=== PATIENT | male | born 1985 | race Caucasian/White ===

== ENCOUNTER 2018-06-01 01:19 | Emergency (ER) | payer OTHER ==
[2018-06-01] MEDS ORDERED: Ondansetron PF 4 MG/2 ML Vial ONE (01:31)
[2018-06-01 01:38] LABS: #Basophils 0.1 thou/uL (0.0-0.2); #Eosinphils 0.3 thou/uL (0.0-0.7); #Lymphocytes 4.7 thou/uL (1.20-3.40); #Monocytes 0.8 thou/uL (0.11-0.59); #Neutrophils 3.9 thou/uL (1.40-6.50); %Basophils 1.1 % (0.0-1.0); %Eosinophils 2.7 % (0.0-10.0); %Lymphocytes 47.9 % (21.0-51.0); %Monocytes 8.5 % (0.0-10.0); %Neutrophils 39.8 % (42.0-75.0); Hemoglobin 14.8 g/dL (14.0-18.0); Mean Corpuscular HGB CONC 32.9 g/dL (32.0-36.0); Mean Corpuscular Hemoglobin 29.6 pg (27.0-31.0); Mean Corpuscular Volume 90.2 fL (78.0-98.0); Mean Platelet Volume 7.6 fL (7.4-10.4); Platelet Count 312 thou/uL (130-400); RBC Distribution Width 11.3 % (11.5-14.5); White Blood Cell (WBC) Count 9.8 thou/uL (4.8-10.8)
[2018-06-01 01:57] LABS: ALT (SGPT) 29 U/L (8-55); AST (SGOT) 20 U/L (5-34); Albumin 4.3 g/dL (3.5-5.0); Alkaline Phosphatase 81 U/L (40-150); Anion Gap 14 mmol/L (10-20); BUN (Urea Nitrogen) 15 mg/dL (8.9-20.6); Bilirubin, Total 0.7 mg/dL (0.2-1.2); Calc. Creatinine Clearance 0 mL/min (70-130); Calcium 9.5 mg/dL (7.8-10.44); Carbon Dioxide 25 mmol/L (22-29); Chloride 106 mmol/L (98-107); Estimated GFR-MDRD 85; Globulin 2.7 g/dL (2.4-3.5); Glucose 99 mg/dL (70-105); Potassium 3.6 mmol/L (3.5-5.1); Sodium 141 mmol/L (136-145)
--- NOTE | 2018-06-01 07:49 | RAD ---
AP VIEW CHEST: HISTORY: Syncope. FINDINGS: AP view chest was obtained on 06/01/2018. AP view chest demonstrates mild cardiomegaly. No evidence of effusions, pneumonia, or pneumothorax i s seen. IMPRESSION: Unremarkable AP view chest. POS: [facility]
--- NOTE | 2018-06-01 08:46 | CT ---
PRELIMINARY REPORT/[facility]/EMERGENTY AFTER-HOURS PROCEDURE CT Cervical Spine Without Contrast EXAM DATE/TIME: 06/01/2018 1:40 AM CLINICAL HISTORY: 33 years old, male; Injury or trauma; Fall; Work related; Initial encounter; Blunt trauma; Injury pernell e: 06/01/18; Patient HX: Syncopized in the ambulance bay. 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 [place] nauseous, light headed and looked pale before the syncope episode. PT fell forward hitting face/forehead wo contusion or laceration TECHNIQUE: Axial computed tomography images of the cervical spine without intravenous contrast. COMPARISON: No relevant prior studies available. FINDINGS: Vertebrae: No acute fracture. Normal alignment. Discs/Spinal canal/Neural foramina: No spinal stenosis. No neural foraminal narrowing. Soft tissues: Unremarkable. Lungs: Lung apices are normal. IMPRESSION: No acute findings. Thank you for allowing us to participate in the care of your patient. Dictated and Authenticated by: Sami Dove MD 06/01/2018 1:58 AM Central Time ([place] & [place]) FINAL REPORT CT CERVICAL SPINE WITH CORONAL AND SAGITTAL REFORMATIONS: I agree with the preliminary report given by Dr. Sami Dove of [facility]. POS: OFF
--- NOTE | 2018-06-01 08:48 | CT ---
PRELIMINARY REPORT/[facility]/EMERGENTY AFTER-HOURS PROCEDURE CT Head Without Contrast EXAM DATE/TIME: 06/01/2018 1:40 AM CLINICAL HISTORY: 33 years old, male; Injury or trauma; Fall; Work related; Initial encounter; Blunt trauma (contusions or hematomas); Injury date: 06/01/18; Patient HX: Syncopized in the ambulance bay. 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 [place] nauseous, light headed and looked pale before the syncope episode. PT fell forward hitting face/forehead wo contusion or laceration TECHNIQUE: Axial computed tomography images of the head/brain without contrast. COMPARISON: No relevant prior studies available. FINDINGS: Brain: Normal. No hemorrhage. No significant white matter disease. No edema. Ventricles: Normal. No ventriculomegaly. Bones/joints: Normal. No acute fracture. Sinuses: Normal as visualized. No acute sinusitis. Mastoid air cells: Normal as visualized. No mastoid effusion. Soft tissues: Normal. IMPRESSION: No acute intracranial abnormality. Thank you for allowing us to participate in the care of your patient. Dictated and Authenticated by: Sami Dove MD 06/01/2018 2:00 AM Central Time ([place] & [place]) FINAL REPORT CT BRAIN WITHOUT CONTRAST: I agree with the preliminary report given by Dr. Sami Dvoe of [facility]. POS: OFF
== END 2018-06-01 02:44 | disposition home or self-care (01) ==
LOC: ERS 01:19
DX: R55 Syncope and collapse (principal)
CPT/HCPCS: 70450; 71045; 72125; 80053; 83880; 84484; 85025; 85379; 93005; 96361; 96374; J2405

== ENCOUNTER 2023-02-18 17:00 | Outpatient (CLI) | payer BC | END 2023-02-18 17:01 | disposition home or self-care (01) | LOC: SLEEPLAB 17:00 | PROVIDERS: ATTEND Family Medicine | DX: G47.33 Obstructive sleep apnea (adult) (pediatric) (principal); F51.9 Sleep disorder not due to a substance or known physiological condition, unspecified; G47.10 Hypersomnia, unspecified; G47.9 Sleep disorder, unspecified; G47.61 Periodic limb movement disorder; R53.83 Other fatigue; R09.89 Other specified symptoms and signs involving the circulatory and respiratory systems; R51.9 Headache, unspecified; R41.9 Unspecified symptoms and signs involving cognitive functions and awareness; F32.A Depression, unspecified; E66.9 Obesity, unspecified; R06.83 Snoring; G47.00 Insomnia, unspecified | CPT/HCPCS: 95800 ==